=== PATIENT | male | born 1965 | race Caucasian/White ===

== ENCOUNTER 2019-02-03 08:26 | Day surgery (SDC) | payer OTHER, BC ==
[2019-02-03] MEDS ORDERED: Rocuronium 100 MG/10 ML MDV IV ONE (08:27)
[2019-02-03] MEDS ORDERED: Glycopyrrolate 0.2 MG/ML 5 ML MDV IV ONE (08:27)
[2019-02-03] MEDS ORDERED: Ketorolac 30 MG/ML SDV IVPUSH ONE (08:27)
[2019-02-03] MEDS ORDERED: HYDROmorphone 2 MG/ML SDV IV ONE (08:27)
[2019-02-03] MEDS ORDERED: Ondansetron 4 MG/2 ML SDV IVPUSH ONE (08:27)
[2019-02-03] MEDS ORDERED: Midazolam 1 MG/ML 2 ML SDV IV ONE (08:27)
[2019-02-03] MEDS ORDERED: fentaNYL 100 MCG/2 ML SDV IV ONE (08:27)
[2019-02-03] MEDS ORDERED: Propofol 200 MG/20 ML SDV IV ONE (08:27)
[2019-02-03] MEDS ORDERED: Lactated Ringers 1,000 ML IV ONE (08:27)
[2019-02-03] MEDS ORDERED: Lactated Ringers 1,000 ML IV SCH (08:45)
[2019-02-03] MEDS ORDERED: ceFAZolin 2 GM in Premix Bag 1 BAG IV ONE (08:45)
[2019-02-03] MEDS ORDERED: Sodium Chloride 0.9% 10 ML Syringe FLUSH PRN (08:45)
[2019-02-03] MEDS ORDERED: Bupivacaine 0.5%/EPINEPHrine 1:200,000 50 ML MDV INJECT ONE (10:25)
[2019-02-03] MEDS ORDERED: Acetaminophen/oxyCODONE 325-5 MG Tab PO ONE (12:59)
--- NOTE | 2019-02-03 13:15 | PCM.OPNOTE ---
- General Post-Op/Procedure Note Date of Surgery/Procedure: 02/03/19 Operative Procedure(s): distal biceps tendon repair Pre Op Diagnosis: right distal biceps tendon rupture Post-Op Diagnosis: same Anesthesia Technique: General ET Tube Primary Surgeon: Stan Choi EBL in mLs: 25 Complications: none Condition: Good
[2019-02-03 14:02] VITALS: BP 137/92
--- NOTE | 2019-02-06 09:19 | CR ---
INDICATION: Right radial TUB placement. C-ARM FLUOROSCOPY IN OR, UP TO ONE HOUR: 0.1 minutes C-arm fluoroscopy time was utilized in OR for TUB placement. NEVAEH
--- NOTE | 2019-02-06 13:30 | OR ---
DATE OF OPERATION: 02/03/2019 SURGEON: Stan Choi DO PREOPERATIVE DIAGNOSIS: Right distal biceps tendon rupture. POSTOPERATIVE DIAGNOSIS: Right distal biceps tendon rupture. PROCEDURE: Open repair of right distal biceps tendon. ASSOCIATE PROJECT MANAGER: Janet Calhoun NP. Nurse practitioner, Janet Calhoun NP, played an essential role in assisting in this case, helping to position the patient, retract structures as needed, as well as suturing and cutting sutures as indicated. Her presence improved patient's safety and decreased operative time. FLUIDS: Lactated Ringer's solution. ESTIMATED BLOOD LOSS: 25 mL. COMPLICATIONS: None. SPECIMEN: None. DISCHARGE DISPOSITION: Stable to PACU. HISTORY AND INDICATIONS FOR THE PROCEDURE: The patient was seen preoperatively in the walk-in clinic. I did stop in to examine him. He had a positive hook sign. Preoperative imaging confirmed the above-mentioned diagnosis. Risks and benefits of the procedure were explained to the patient, and informed consent was obtained. DETAILS OF PROCEDURE: The patient was seen preoperatively by myself and the anesthesia staff in the preoperative holding area, where the op site was marked. He was brought to the operative suite by Anesthesia staff where general anesthesia was administered. A hand board was placed. The right upper extremity was then prepped and draped in a sterile manner. Time-out was called to identify the correct patient, the correct procedure, the correct site, and that antibiotics had been begun within appropriate period of time. The fluoroscopy unit, which was sterilely draped, was brought in to identify the area of the radial tuberosity and nu it. I did make a longitudinal incision up to the level of the cubital fossa and extending from the tuberosity distally approximately 4 cm. I then very carefully opened the subcutaneous layers. Bleeding during the case was controlled using Bovie electrocautery. Using Metzenbaum scissors and pickups, I very carefully used blunt dissection in a spreading motion using the Metzenbaum down to the level of the radial tuberosity. This was marked and then I used a curette to clear the bone over the radial tuberosity. The lateral and medial brachial cutaneous nerves were visualized, as well as the cephalic vein. I then tried to place an anchor. Unfortunately, because of the cortical thickness, I believe, the anchor would not go through the hole created by our wire, which was used to open up the cortex. I then used a 2.3 mm anchor. This provided good fixation. We then focused on finding the distal biceps tendon, which was expected to be within 3 cm of the radial tuberosity. I did scrub out during the case to re-evaluate the MRI after exploring. At that point, I decided to extend my incision proximally going more in a proximal and ulnar manner and then going over the biceps brachii fascia. I then was able to see just a very small hematoma through the fascia and then went through the fascia and found the tendon. We then explored the area where the tendon went through down to the level of the radial tuberosity. This was retracted probably about 9 to 10 cm. I did not think that the tendon would hold by itself, so I applied a TissueMend synthetic collagen from [employer] and wrapped this around the tendon and did that with an interlocking stitch using 2-0 Vicryl. I then, using a free needle, passed one of the sutures from my anchor through the TissueMend and tented, and then using an Allis, I was able to pull it down close to the level of the tuberosity, and I tied it there. I then used my other anchor with a free needle and did a Krackow stitch on both sides of the tendon and then tied. This provided good fixation throughout range of motion. We then copiously irrigated with Betadine infused irrigation and then closed the subcutaneous layer deeply with #1 Stratafix, followed by skin michel, followed by Betadine-soaked Adaptic, followed by sterile dressing and Jay Jay. He was then placed into a sling at 90 degrees and then taken to the PACU in stable condition. /[id number] BS/[id number]
== END 2019-02-03 13:55 | disposition home or self-care (01) ==
LOC: FB.SDS 08:26
PROVIDERS: ATTEND Orthopaedic Surgery
DX: S46.211A Strain of muscle, fascia and tendon of other parts of biceps, right arm, initial encounter (principal); M10.9 Gout, unspecified; Z79.899 Other long term (current) drug therapy; X58.XXXA Exposure to other specified factors, initial encounter
CPT/HCPCS: 24342; 76000; 82962; A9270; J0690; J1170; J1885; J2250; J2405; J2704; J3010; J3490; J7120